=== PATIENT | female | born 1950 | race Caucasian/White ===

== ENCOUNTER 2017-05-24 09:21 | Day surgery (SDC) | payer MEDICARE ==
[~2017-05-24 09:21] MED LIST: Acetaminophen TAB* 325 MG PO PRN; Buffered Lidocaine 0.9% SYRIN* 5 ML/SYR SYRINGE INTRADERM ONE
[2017-05-24] MEDS ORDERED: Midazolam* 1 MG/ML 2 ML VIAL (2 MG) ONE ×2 (09:57→10:19)
[2017-05-24] MEDS ORDERED: Bacitracin OPHTH.OINT* 3.5 GM ONE (10:17)
[2017-05-24] MEDS ORDERED: fentaNYL* 50 MCG/ML 2 ML VIAL (100 MCG VIAL) ONE (10:27)
[2017-05-24 10:54] VITALS: BP 113/63
[2017-05-24] MEDS ORDERED: Cyclopentolate 1% OPTH.SOL* 2 ML BTL ONE (11:36)
[2017-05-24] MEDS ORDERED: Neomycin/Polymy/Dex OPHTH.OIN* 3.5 GM ONE (11:36)
[2017-05-24] MEDS ORDERED: Tetracaine 0.5% OPTH.SOL 4 ML* 1 DROP BTL ONE (11:36)
[2017-05-24] MEDS ORDERED: Lidocaine 1% MPF* 2 ML VIAL ONE (11:36)
[2017-05-24] MEDS ORDERED: Flurbiprofen 0.03% OPTH.SOL* 2.5 ML BTL ONE (11:36)
[2017-05-24] MEDS ORDERED: Tropicamide 1% OPTH.SOL* BTL ONE (11:36)
[2017-05-24] MEDS ORDERED: Phenylephrine 2.5% OPTH.SOL* 2 ML BTL ONE (11:36)
[2017-05-24] MEDS ORDERED: Buffered Lidocaine 0.9% SYRIN* 5 ML/SYR SYRINGE ONE (11:36)
--- NOTE | 2017-05-24 16:37 | OP ---
DATE OF OPERATION/DATE OF DICTATION: 05/24/2017 - [facility] DATE OF : 1950. SURGEON: Dr. Robert Quinteros. CAN STACKER: None. ANESTHESIA: Topical with intravenous sedation. PRE-OP DIAGNOSIS: Cataract, left eye. POST-OP DIAGNOSIS: Cataract, left eye. OPERATIVE PROCEDURE: Phacoemulsification and cataract extraction with posterior chamber intraocular lens implant, left eye. COMPLICATIONS: None. BLOOD LOSS: None. DESCRIPTION OF PROCEDURE: The patient was brought to the operating room and received a small amount of intravenous sedation. A drop of Tetracaine was placed in her left eye. She was prepped and draped in the usual sterile fashion for ophthalmic surgery and attention was directed to the left eye where a speculum was placed. A paracentesis was created at the 5 o'clock position and 0.1 cc of 1 percent preservative-free Lidocaine was injected into the anterior chamber followed by DisCoVisc. The eye was digitally stabilized while a 2.75 mm keratome was used to create a triplanar clear corneal incision at the 3 o'clock position. A continuous curvilinear capsulorrhexis was created with a cystotome and Utrata forceps. BSS on a cannula was used to hydrodissect the lens from the capsule. Phacoemulsification was performed in a divide-and- conquer technique to create four fragments which were removed. Residual cortical material was removed with irrigation and aspiration. DisCoVisc was used to inflate the capsular bag and an AUOOTO 18.5 diopter lens was folded and inserted into the capsular bag. DisCoVisc was removed using irrigation and aspiration. BSS on a cannula was used to hydrate the corneal stroma and seal the wound. At the end of the case the pupil was round and the lens was centered. The eye was of normal pressure and the wound was water tight. The speculum was removed and topical Maxitrol ointment was placed on the surface of the eye. The eye was closed, patched and shielded and the patient was sent to the recovery room in stable condition with post operative instructions and follow-up appointment given. [id number]/[facility] #: [id number] MTDD
== END 2017-05-24 10:57 | disposition home or self-care (01) ==
LOC: OREAST 09:21
PROVIDERS: ATTEND Ophthalmology
DX: H25.12 Age-related nuclear cataract, left eye (principal)
CPT/HCPCS: A9270-GY; J2250; J3010; V2632

== ENCOUNTER 2017-05-31 08:00 | Day surgery (SDC) | payer MEDICARE ==
[2017-05-31] MEDS ORDERED: fentaNYL* 50 MCG/ML 2 ML VIAL (100 MCG VIAL) ONE (09:30)
[2017-05-31] MEDS ORDERED: Midazolam* 1 MG/ML 2 ML VIAL (2 MG) ONE ×2 (09:30→09:38)
[2017-05-31 10:09] VITALS: BP 129/76
[2017-05-31] MEDS ORDERED: Cyclopentolate 1% OPTH.SOL* 2 ML BTL ONE (11:53)
[2017-05-31] MEDS ORDERED: Neomycin/Polymy/Dex OPHTH.OIN* 3.5 GM ONE (11:54)
[2017-05-31] MEDS ORDERED: Lidocaine 1% MPF* 2 ML VIAL ONE (11:54)
[2017-05-31] MEDS ORDERED: Buffered Lidocaine 0.9% SYRIN* 5 ML/SYR SYRINGE ONE (11:54)
[2017-05-31] MEDS ORDERED: Tropicamide 1% OPTH.SOL* BTL ONE (11:54)
[2017-05-31] MEDS ORDERED: Tetracaine 0.5% OPTH.SOL 4 ML* 1 DROP BTL ONE (11:54)
[2017-05-31] MEDS ORDERED: Phenylephrine 2.5% OPTH.SOL* 2 ML BTL ONE (11:54)
[2017-05-31] MEDS ORDERED: Flurbiprofen 0.03% OPTH.SOL* 2.5 ML BTL ONE (11:54)
--- NOTE | 2017-05-31 12:19 | OP ---
OPERATIVE REPORT: DATE OF OPERATION: 05/31/17 DATE OF : [birth year] SURGEON: Dr. Robert Quinteros. PAYMENT REP: None. ANESTHESIA: Topical with intravenous sedation. PRE-OP DIAGNOSIS: Cataract, right eye. POST-OP DIAGNOSIS: Cataract, right eye. OPERATIVE PROCEDURE: Phacoemulsification and cataract extraction with posterior chamber intraocular lens implant, right eye. COMPLICATIONS: None. BLOOD LOSS: None. DESCRIPTION OF PROCEDURE: The patient was brought to the operating room and received a small amount of intravenous sedation. A drop of Tetracaine was placed in her right eye. She was prepped and dr poonam in the usual sterile fashion for ophthalmic surgery and attention was directed to the right eye where a speculum was placed. A paracentesis was created at the 11 o'clock position and 0.1 cc of 1 percent preservative-free Lidocaine was injected into the anterior chamber followed by DisCoVisc. The eye was digitally stabilized while a 2.75 mm keratome was used to create a triplanar clear corne al incision at the 9 o'clock position. A continuous curvilinear capsulorrhexis was created with a c ystotome and Utrata forceps. BSS on a cannula was used to hydrodissect the lens from the capsule. P hacoemulsification was performed in a elxvmw-awb-[id number] technique to create four fragments which we re removed. Residual cortical material was removed with irrigation and aspiration. DisCoVisc was u sed to inflate the capsular bag and an AU00T0 18.0 diopter lens was folded and inserted into the cap sular bag. DisCoVisc was removed using irrigation and aspiration. BSS on a cannula was used to hyd rate the corneal stroma and seal the wound. At the end of the case the pupil was round and the lens was centered. The eye was of normal pressure and the wound was water tight. The speculum was estela cynthia and topical Maxitrol ointment was placed on the surface of the eye. The eye was closed, patched and shielded and the patient was sent to the recovery room in stable condition with post operative instructions and follow-up appointment given. [id number]/[id number] #: [id number]
== END 2017-05-31 10:20 | disposition home or self-care (01) ==
LOC: OREAST 08:00
PROVIDERS: ATTEND Ophthalmology
DX: H25.11 Age-related nuclear cataract, right eye (principal)
CPT/HCPCS: A9270-GY; J2250; J3010

== ENCOUNTER 2020-10-10 20:37 | Inpatient (IN) ==
[2020-10-11] MEDS ORDERED: NS 0.9% 1000 ml BAG 1,000 ML IV ONE (00:16)
[2020-10-11] MEDS ORDERED: Ondansetron 4 mg VIAL 2 MG/ML 2 ml VIAL IV ONE (00:16)
[2020-10-11 01:08] LABS: ABS Lymphocytes 2.4 10^3/ul (1.0-4.8); ABS Monocytes 0.8 10^3/ul (0-0.8); ABS Neutrophils 7.2 10^3/ul (1.5-7.7); Eosinophil % 0.1 %; Hematocrit 40 % (35-47); Hemoglobin 13.5 g/dL (12.0-16.0); Lymphocyte % 22.9 %; Mean Corpuscular HGB Conc 34 g/dL (31-36); Mean Corpuscular Hemoglobin 31 pg (27-31); Mean Corpuscular Volume 90 fL (80-97); Mean Platelet Volume 8.2 fL (7.4-10.4); Platelet Count 211 10^3/uL (150-450); Red Blood Count 4.42 10^6 /uL (3.70-4.87); Red Cell Distribution Width 13 % (10-15); White Blood Count 10.5 10^3/uL (3.5-10.8)
[2020-10-11] MEDS ORDERED: Metoclopramide 5 MG/ML VIAL (10 mg) IV ONE (01:15)
[2020-10-11 01:25] LABS: Albumin 4.4 g/dL (3.2-5.2); Albumin/Globulin Ratio 1.4 (1-3); BUN/Creatinine Ratio 18.6 (8-20); Calcium 9.6 mg/dL (8.6-10.3); EGFR African American 100.4 (>60); Globulin 3.2 g/dL (2-4); Potassium 3.8 mmol/L (3.5-5.0); Total Bilirubin 0.5 mg/dL (0.2-1.0); Total Protein 7.6 g/dL (6.4-8.9)
[2020-10-11 02:21] LABS: Influenza A Molecular Negative (Negative); Influenza B Molecular Negative (Negative)
[2020-10-11 02:34] LABS: Troponin I 0.01 ng/mL (<0.03)
[2020-10-11] MEDS ORDERED: Iohexol 350 (CONTRAST) 500 ML MDV IV ONE (04:39)
[2020-10-11 04:46] LABS: Urine Appearance Cloudy; Urine Bilirubin Negative (Negative); Urine Blood Negative (Negative); Urine Color Yellow; Urine Glucose Negative (Negative); Urine Ketones Negative (Negative); Urine Nitrite Negative (Negative); Urine Protein Negative (Negative); Urine Specific Gravity 1.015 (1.010-1.030); Urine Urobilinogen Negative (Negative)
[2020-10-11] MEDS ORDERED: Lidocaine 1% MPF 5 ML VIAL INJ ONE (08:05)
[2020-10-11] MEDS ORDERED: Vancomycin 1,250 MG in NS 0.9% 250 ml 250 ML IVPB ONE (08:09)
[2020-10-11 08:13] LABS: C Reactive Protein 16.15 mg/L (<8.01)
[2020-10-11] MEDS ORDERED: Al Hydrox/Mg Hydrox/Simet LIQ 30 ML UDC PO PRN (08:17)
[2020-10-11] MEDS ORDERED: Acyclovir IV 500 MG/10 ML 100 ML VIAL (500 MG) IVPB SCH (09:00)
[2020-10-11] MEDS ORDERED: Venlafaxine XR 75 mg PO SCH (09:00)
[2020-10-11] MEDS ORDERED: Vancomycin per Pharmacy 1 EA NOTE FOLLOW UP SCH (09:00)
[2020-10-11 09:05] LABS: Body Fluid Source Cerebral Spinal
[2020-10-11 09:16] LABS: CSF Glucose 84 mg/dL (40-70)
[2020-10-11 10:32] LABS: Body Fluid Mono 6 %
[2020-10-11 10:34] LABS: Body Fluid Mono 14 %
[2020-10-11] MEDS: NS 0.9% 1000 ml BAG 1,000 ML IV SCH (13:27)
[2020-10-11] MEDS: cefTRIAXone 2 GM ADDV.VIAL 2 GM in NS 0.9% 100 ml BAG 100 ML IV SCH (13:28)
[2020-10-11] MEDS: Ampicillin ADVAN 2 GM in NS 0.9% 100 ml BAG 100 ML IVPB SCH ×3 (14:47→21:22)
[2020-10-11] MEDS: Acyclovir IV 550 MG in NS 0.9% 100 ml BAG 100 ML IVPB SCH ×2 (15:43→23:36)
[2020-10-11 16:26] LABS: Activated Partial Thrombo Time 30.6 seconds (26.0-38.0); INR 1.14 (0.82-1.09)
[2020-10-11] MEDS: Vancomycin 1000 MG in NS 0.9% 250 ML IVPB SCH (19:29)
[2020-10-11] MEDS: Heparin 5000 UNITS/ML 1 mL VIAL SUBCUT SCH ×2 (21:32→22:00)
[2020-10-11] MEDS: Venlafaxine XR 75 mg PO SCH (22:02)
[2020-10-11] MEDS ORDERED: Morphine 2 MG/ML SYRINGE IV PRN (23:44)
[2020-10-12] MEDS: cefTRIAXone 2 GM ADDV.VIAL 2 GM in NS 0.9% 100 ml BAG 100 ML IV SCH ×2 (01:20→12:37)
[2020-10-12] MEDS: Ampicillin ADVAN 2 GM in NS 0.9% 100 ml BAG 100 ML IVPB SCH ×6 (02:01→21:24)
[2020-10-12 04:56] LABS: ABS Basophils 0.1 10^3/ul (0-0.2); ABS Lymphocytes 2.4 10^3/ul (1.0-4.8); ABS Monocytes 0.7 10^3/ul (0-0.8); ABS Neutrophils 4.6 10^3/ul (1.5-7.7); Eosinophil % 0.3 %; Hematocrit 34 % (35-47); Hemoglobin 11.4 g/dL (12.0-16.0); Lymphocyte % 31.1 %; Mean Corpuscular HGB Conc 34 g/dL (31-36); Mean Corpuscular Hemoglobin 31 pg (27-31); Mean Corpuscular Volume 91 fL (80-97); Mean Platelet Volume 8.8 fL (7.4-10.4); Platelet Count 174 10^3/uL (150-450); Red Blood Count 3.73 10^6 /uL (3.70-4.87); Red Cell Distribution Width 13 % (10-15); White Blood Count 7.8 10^3/uL (3.5-10.8)
[2020-10-12 05:13] LABS: BUN/Creatinine Ratio 17.9 (8-20); Calcium 8.8 mg/dL (8.6-10.3); EGFR African American 129.9 (>60); EGFR Non-African American 107.3 (>60); Potassium 3.3 mmol/L (3.5-5.0)
[2020-10-12] MEDS: NS 0.9% 1000 ml BAG 1,000 ML IV SCH (06:35)
[2020-10-12] MEDS: Acyclovir IV 550 MG in NS 0.9% 100 ml BAG 100 ML IVPB SCH ×3 (07:28→23:29)
[2020-10-12] MEDS: Heparin 5000 UNITS/ML 1 mL VIAL SUBCUT SCH (07:28)
[2020-10-12] MEDS: Vancomycin 1000 MG in NS 0.9% 250 ML IVPB SCH ×2 (07:46→21:24)
[2020-10-12] MEDS: Venlafaxine XR 75 mg PO SCH (09:48)
[2020-10-12] MEDS ORDERED: Metoclopramide 5 MG/ML VIAL (10 mg) IV SLOW PU ONE (10:01)
[2020-10-12] MEDS ORDERED: Ondansetron 4 mg VIAL 2 MG/ML 2 ml VIAL IV PRN (10:02)
[2020-10-12 11:00] LABS: Magnesium 1.7 mg/dL (1.9-2.7)
[2020-10-12] MEDS ORDERED: Magnesium Sulfate IV 1GM/100ML 1 GM/100 ML BAG IV ONE (14:58)
[2020-10-12] MEDS ORDERED: Lactated Ringers 1000 ml BAG 1,000 ML IV ONE (14:59)
[2020-10-12] MEDS: Potassium Chlor 20 meq TAB.ER PO ONE ×2 (15:56→16:07)
[2020-10-12] MEDS: Lactated Ringers 1000 ml BAG 1,000 ML IV SCH ×2 (16:21→21:24)
[2020-10-12] MEDS ORDERED: Potassium Chloride LIQUID 20 MEQ/15 ML LIQUID PO ONE (17:00)
[2020-10-12] MEDS ORDERED: Vancomycin Trough Check NOTE FOLLOW UP ONE (19:30)
[2020-10-12] MEDS: Enoxaparin 40 MG/0.4 ML SYR SUBCUT SCH (21:42)
[2020-10-13] MEDS: Ampicillin ADVAN 2 GM in NS 0.9% 100 ml BAG 100 ML IVPB SCH ×4 (01:05→14:27)
[2020-10-13] MEDS: cefTRIAXone 2 GM ADDV.VIAL 2 GM in NS 0.9% 100 ml BAG 100 ML IV SCH ×2 (01:05→14:35)
[2020-10-13] MEDS: Vancomycin 1000 MG in NS 0.9% 250 ML IVPB SCH ×2 (04:01→12:25)
[2020-10-13] MEDS: Acyclovir IV 550 MG in NS 0.9% 100 ml BAG 100 ML IVPB SCH ×3 (06:32→22:37)
[2020-10-13 07:38] LABS: Hematocrit 36 % (35-47); Hemoglobin 12.2 g/dL (12.0-16.0); Mean Corpuscular HGB Conc 34 g/dL (31-36); Mean Corpuscular Hemoglobin 31 pg (27-31); Mean Corpuscular Volume 89 fL (80-97); Mean Platelet Volume 8.2 fL (7.4-10.4); Platelet Count 192 10^3/uL (150-450); Red Blood Count 4.01 10^6 /uL (3.70-4.87); Red Cell Distribution Width 12 % (10-15); White Blood Count 7.7 10^3/uL (3.5-10.8)
[2020-10-13 07:59] LABS: BUN/Creatinine Ratio 12.5 (8-20); Calcium 8.9 mg/dL (8.6-10.3); EGFR African American 129.9 (>60); EGFR Non-African American 107.3 (>60); Magnesium 1.6 mg/dL (1.9-2.7); Potassium 2.8 mmol/L (3.5-5.0)
[2020-10-13] MEDS: Lactated Ringers 1000 ml BAG 1,000 ML IV SCH ×2 (08:17→20:17)
[2020-10-13 08:39] LABS: C Reactive Protein 13.15 mg/L (<8.01)
[2020-10-13] MEDS: Venlafaxine XR 75 mg PO SCH (08:41)
[2020-10-13] MEDS ORDERED: Potassium Chlor 20 meq TAB.ER PO ONE (09:24)
[2020-10-13] MEDS ORDERED: KCL 20 MEQ/100 ML IVPREMIX 20 MEQ/100 ML BAG IV ONE (09:30)
[2020-10-13] MEDS ORDERED: Magnesium Sulfate IV 3 GM in NS 0.9% 100 ml BAG 100 ML IVPB ONE (09:30)
[2020-10-13 18:34] LABS: Magnesium 2.3 mg/dL (1.9-2.7); Potassium 3.1 mmol/L (3.5-5.0)
[2020-10-13 18:39] LABS: BUN/Creatinine Ratio 16.4 (8-20); EGFR African American 117.7 (>60); EGFR Non-African American 97.2 (>60)
[2020-10-13] MEDS ORDERED: Vancomycin Trough Check NOTE FOLLOW UP ONE (19:30)
[2020-10-13] MEDS: Enoxaparin 40 MG/0.4 ML SYR SUBCUT SCH (19:33)
[2020-10-13] MEDS: KCL 20 MEQ/100 ML IVPREMIX 20 MEQ/100 ML BAG IV SCH ×2 (20:18→22:37)
[2020-10-14] MEDS: KCL 20 MEQ/100 ML IVPREMIX 20 MEQ/100 ML BAG IV SCH (00:42)
[2020-10-14] MEDS: cefTRIAXone 2 GM ADDV.VIAL 2 GM in NS 0.9% 100 ml BAG 100 ML IV SCH ×2 (00:45→13:43)
[2020-10-14 07:14] LABS: Calcium 8.6 mg/dL (8.6-10.3); EGFR African American 138.4 (>60); EGFR Non-African American 114.4 (>60); Magnesium 1.8 mg/dL (1.9-2.7); Potassium 3.4 mmol/L (3.5-5.0)
[2020-10-14] MEDS: Acyclovir IV 550 MG in NS 0.9% 100 ml BAG 100 ML IVPB SCH ×2 (08:10→15:04)
[2020-10-14] MEDS: Venlafaxine XR 75 mg PO SCH (08:12)
[2020-10-14] MEDS ORDERED: Magnesium Sulfate 2 gm BAG 2 GM/50 ML BAG IVPB ONE (11:00)
[2020-10-14] MEDS: Potassium Chlor 20 meq TAB.ER PO SCH ×2 (13:47→17:12)
[2020-10-14 14:53] LABS: CSF VDRL Negative (Negative)
[2020-10-14] MEDS: Lactated Ringers 1000 ml BAG 1,000 ML IV SCH (15:26)
[2020-10-14 15:53] LABS: HSV 1 PCR, CSF Negative (Negative); HSV 2 PCR, CSF Negative (Negative)
[2020-10-14] MEDS: Enoxaparin 40 MG/0.4 ML SYR SUBCUT SCH (22:11)
[2020-10-15] MEDS: cefTRIAXone 2 GM ADDV.VIAL 2 GM in NS 0.9% 100 ml BAG 100 ML IV SCH ×2 (01:02→13:09)
[2020-10-15 01:06] LABS: Anaplasma phagocytophilum Negative (Negative); B. miyamotoi PCR, B Negative (Negative); Babesia divergens/MO-1 Negative (Negative); Babesia ducani Negative (Negative); Ehrlichia chaffeensis Negative (Negative); Ehrlichia ewingii/canis Negative (Negative); Ehrlichia muris eauclairensis Negative (Negative)
[2020-10-15 07:34] LABS: Calcium 8.9 mg/dL (8.6-10.3); EGFR African American 138.4 (>60); EGFR Non-African American 114.4 (>60); Magnesium 1.9 mg/dL (1.9-2.7); Potassium 3.4 mmol/L (3.5-5.0)
[2020-10-15] MEDS: Venlafaxine XR 75 mg PO SCH (08:18)
[2020-10-15] MEDS: Lactated Ringers 1000 ml BAG 1,000 ML IV SCH (11:23)
[2020-10-15] MEDS: Enoxaparin 40 MG/0.4 ML SYR SUBCUT SCH (20:37)
[2020-10-15 23:19] LABS: Varicella Zoster Result Negative (Negative); Varicella Zoster Source CSF
[2020-10-16] MEDS: cefTRIAXone 2 GM ADDV.VIAL 2 GM in NS 0.9% 100 ml BAG 100 ML IV SCH ×2 (01:08→14:19)
[2020-10-16 07:15] LABS: BUN/Creatinine Ratio 24.6 (8-20); Calcium 9.1 mg/dL (8.6-10.3); EGFR African American 117.7 (>60); EGFR Non-African American 97.2 (>60); Magnesium 2.1 mg/dL (1.9-2.7); Potassium 3.4 mmol/L (3.5-5.0)
[2020-10-16] MEDS: Venlafaxine XR 75 mg PO SCH (10:19)
[2020-10-16] MEDS ORDERED: Potassium Chlor 20 meq TAB.ER PO ONE (11:00)
[2020-10-16] MEDS: Enoxaparin 40 MG/0.4 ML SYR SUBCUT SCH (20:58)
[2020-10-17] MEDS: cefTRIAXone 2 GM ADDV.VIAL 2 GM in NS 0.9% 100 ml BAG 100 ML IV SCH ×2 (01:07→12:21)
[2020-10-17] MEDS: Venlafaxine XR 75 mg PO SCH (08:12)
[2020-10-17] MEDS ORDERED: Potassium Chlor 20 meq TAB.ER PO ONE (09:11)
[2020-10-17 11:25] VITALS: BP 133/73
[2020-10-17 17:43] LABS: CSF West Nile Virus IgG Ab Negative (Negative); CSF West Nile Virus IgM Ab Negative (Negative)
== END 2020-10-17 13:45 | disposition home or self-care (01) | DRG 97 ==
LOC: ED 20:37 → MED 10-11 08:17
PROVIDERS: ADMIT Internal Medicine; ATTEND Internal Medicine